=== PATIENT | female | born 2000 | race Hispanic/Latino ===

== ENCOUNTER 2022-10-13 16:42 | Emergency (ER) | payer OTHER ==
--- OUTSIDE RECORDS SUMMARY | 2022-10-13 16:48 | XMS REPORT | Continuity of Care Document ---
:2000 Author Organization [facility] t Address [address] [facility] [address] [place] [address] Care Team Providers Name Role Phone Unavailable Unavailable Unavailable Problems This patient has no known problems. Allergies, Adverse Reactions, Alerts This patient has no known allergies or adverse reactions. Medications This patient has no known medications. Procedures This patient has no known procedures. Results Test Description Test Time Test Comments Results Result Comments Source CBC W/AUTO DIFF WITH PLATELETS 2021-10-01 06:41:27 Test Item Value Reference Range Interpretation Comme nts WBC (test code = 1001) 7.1 K/UL 3.5-11.0 RBC (test code = 1002) 4.82 M/UL 3.80-5.40 HEMOGLOBIN (test code = 1003) 13.9 G/DL 11.5-15.5 HEMATOCRIT (test code = 1004) 41.7 % 34.0-45.0 MCV (test code = 1005) 86.5 fL 80.0-99.0 MCH (test code = 1006) 28.8 PG 25.0-33.0 MCHC (test code = 1007) 33.3 G/DL 31.0-36.0 RDW (test code = 1038) 12.7 % 11.5-15.0 NEUTROPHILS (test code = 56.9 % 1008) LYMPHOCYTES (test code = 34.6 % 1010) MONOCYTES (test code = 1011) 6.8 % EOSINOPHILS (test code = 1.1 % 1012) BASOPHILS (test code = 1013) 0.3 % IMMATURE GRANULOCYTES (test 0.3 % code = 1036) NUCLEATED RBCS (test code = 0.0 /100 WBC'S See_Comment [Automated message] The [employer] system which ge nerated this result transmit hilda reference range : 0.0. The reference range was not used to interpr et this result as miguel a l/abnormal. PLATELET COUNT (test code = 173 K/UL [phone]) ABSOLUTE NEUTROPHILS (test 4.04 K/UL 1.50-7.50 code = 1066) ABSOLUTE LYMPHOCYTES (test 2.46 K/UL 1.00-4.00 code = 1067) ABSOLUTE MONOCYTES (test code 0.48 K/UL 0.20-1.00 = 1068) ABSOLUTE EOSINOPHILS (test 0.08 K/UL 0.00-0.50 code = 1040) ABSOLUTE BASOPHILS (test code 0.02 K/UL 0.00-0.20 = 1069) ABS IMMATURE GRANULOCYTES 0.02 K/UL 0.00-0.10 (test code = 1020) ABS NUCLEATED RBCS (test code 0.00 K/UL 0.00-0.11 = 67574) HCG, [id number] 06:05:57 Test Item Value Reference Range Interpretation Comments HCG, QUANTITATIVE (test <5 MIU/ML SEE BELOW EXPECTED code = 2506) VALUES FOR HCG GST.AGE UNITS RANGE GST. AGE UNITS RANGE3 WEEKS PR U/ML 6-71 10 WEEKS M IU/ML 46,509-186,9774 WEEKS MIU/ML 10 -750 12 WEEKS MIU/ML 27,832-210,6125 WEEKS MIU/ML 217-7,138 14 WE EKS MIU/ML 13,950-62,5306 WEEKS MIU/ML 158-31,7 95 15 WEEKS MIU/ML 12,039-70,9717 WEEKS MIU/ML 3,697-16 3,563 16 WEEKS MIU/ML 9,040-56,4518 W EEKS MIU/ML 32,065-149,571 17 WEEKS MIU/ML 8,175-55,8689 W EEKS MIU/ML 63,803-151,410 18 WEEKS MIU/ML 8,099-58,176MAL ES and NON-PREGNAN T FEMALES . . . . . . . . MIU/ML [id number] ISABELLA FEMALES . . . . . . . . . . . . MIU /ML <=7 TSH, THIRD [id number] 06:05:57 Test Item Value Reference Range Interpretation Comments TSH, THIRD GENERATION (test code 1.970 UIU/ML 0.400-4.100 = 282) COMPREHENSIVE METABOLIC [id number] 05:04:59 Test Item Value Reference Range Interpretation Comments GLUCOSE (test code = 86 MG/DL 70-99 2216) BUN (test code = 15 MG/DL 6-20 2207) CREATININE (test 0.68 MG/DL 0.50-1.10 code = 221) eGFR (2020 CKD-EPI) 129 >60 (test code = 26008) ML/MIN/1.73 CALC BUN/CREAT (test 22 RATIO 6-28 code = 2235) SODIUM (test code = 142 MEQ/L 771-425 4405) POTASSIUM (test code 4.2 MEQ/L 3.5-5.4 = 2227) CHLORIDE (test code 106 MEQ/L 95-107 = 2214) CARBON DIOXIDE (test 23 MEQ/L 19-31 code = 220) CALCIUM (test code = 9.7 MG/DL 8.5-10.5 2208) PROTEIN, TOTAL (test 7.1 G/DL 6.1-8.3 code = 222) ALBUMIN (test code = 4.9 G/DL 3.5-5.2 2200) CALC GLOBULIN (test 2.2 G/DL 2.1-3.7 code = 2240) CALC A/G RATIO (test 2.2 RATIO 1.0-2.6 code = 2234) BILIRUBIN, TOTAL 0.4 MG/DL See_Comment [Automated message] (test code = 2207) [employer] which generated this result transmitted ref erence range: <=1.2. T he reference range was not used to int erpret this result as normal/abnormal . ALKALINE PHOSPHATASE 79 U/L 41-120 (test code = 2204) AST (test code = 19 U/L 9-40 2217) ALT (test code = 13 U/L 5-40 UNLESS OTH ERWISE 2218) INDICATED, ALL TESTING PERFORM [facility] [place] [address] [place] [address] [facility] DIRECTOR: BERENICE LESTER M.D. CLIA NUMBER [id number] CAP ACCREDITATION N O. [id number]
[2022-10-13 18:39] LABS: Specific Gravity 1.026 (1.005-1.030)
[2022-10-13 18:43] LABS: Specific Gravity 1.026 (1.005-1.030); Urine Bacteria None Seen /HPF (<20); Urine Bilirubin NEGATIVE (Negative); Urine Blood 3+ (Negative); Urine Clarity Turbid (Clear); Urine Color Light-Yellow (Yellow); Urine Glucose NEGATIVE (Negative); Urine Mucus 1+ /HPF (None Seen); Urine Protein 1+ (Negative); Urine Urobilinogen Normal (Normal); Urine pH 7.5 (5.0-7.0)
--- NOTE | 2022-10-13 19:22 | EDPHYS ---
Physician Documentation [facility] Name: Zelda Alfaro Age: 21 yrs Sex: Female : 2000 Arrival Date: 10/13/2022 Time: 16:42 Bed DIS1 Private MD: TERESA Physician Ze Baptiste HPI: 10/14 08:04 This 21 yrs old Female presents to ER via Ambulatory with complaints of sb4 Abdominal Cramping, Dizziness. 08:04 21-year-old otherwise healthy female presents with complaints of abdominal cramping and sb4 dizziness. She states that she started her menstrual cycle yesterday and today experienced a dizzy episode where she experienced some blurry vision and floaters. She states the bleeding has been a little bit heavier than normal and she has been experiencing more intense abdominal cramping than she normally does on her cycles. Denies any syncope, vomiting, fever, abnormal vaginal discharge, urinary symptoms. 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 - Social history:: Smoking status: Patient denies any tobacco usage or history of. ROS: 10/14 08:05 Constitutional: Negative for fever, chills, and weight loss. sb4 Abdomen/GI: Positive for nausea, diarrhea, abdominal cramps, Negative for vomiting, rectal pain, rectal bleeding. : : Positive for vaginal bleeding, menstrual abnormality, Negative for hematuria, pelvic pain, flank pain, burning with urination, difficulty urinating. Neuro: Positive for dizziness, Negative for headache, syncope. All other systems are negative. All other systems are negative. Exam: 08:05 Constitutional: This is a well developed, well nourished patient who is awake, alert, sb4 and in no acute distress. Head/Face: Normocephalic, atraumatic. Eyes: Extra-ocular motions intact. Periorbital areas with no swelling, redness, or edema. Cardiovascular: Regular rate and rhythm with a normal S1 and S2. Respiratory: Lungs have equal breath sounds bilaterally, clear to auscultation and percussion. No rales, rhonchi or wheezes noted. No increased work of breathing, no retractions or nasal flaring. Abdomen/GI: Soft, non-tender, no distension. Skin: Warm, dry with normal turgor. Normal color with no rashes, no lesions, and no evidence of cellulitis. MS/ Extremity: Pulses equal, no cyanosis. Neurovascular intact. Full, normal range of motion. Neuro: Awake and alert, GCS 15, oriented to person, place, time, and situation. Cranial nerves II-XII grossly intact. Motor strength 5/5 in all extremities. Sensory grossly intact. Cerebellar exam normal. Normal gait. Vital Signs: 10/13 16:49 BP 120 / 69; Pulse 69; Resp 16; Temp 97.8; Pulse Ox 100% ; Weight 49.9 kg; Height 5 ft. cm10 3 in. ; Pain 5/10; 16:49 Body Mass Index 19.49 (49.90 kg, 160.02 cm) cm10 16:49 Pain Scale: Adult cm10 MDM: 16:50 Patient medically screened. sb4 10/14 08:05 Differential diagnosis: STD, ectopic , dysmenorrhea, UTI. Data reviewed: vital sb4 signs, nurses notes, lab test result(s), urinalysis, and as a result, I will discharge patient. Counseling: I had a detailed discussion with the patient and/or guardian regarding: the historical points, exam findings, and any diagnostic results supporting the discharge/admit diagnosis, lab results, to return to the emergency department if symptoms worsen or persist or if there are any questions or concerns that arise at home. 10/13 17:42 Order name: UAM; Complete Time: 18:44 sb4 10/13 17:42 Order name: Test, Urine; Complete Time: 18:44 sb4 Administered Medications: No medications were administered Disposition Summary: 10/13/22 19:21 Discharge Ordered Location: Home sb4 Problem: new sb4 Symptoms: have improved sb4 Condition: Stable sb4 Diagnosis - Primary dysmenorrhea sb4 - Dizziness and giddiness sb4 Followup: sb4 - With: Emergency Department - When: As needed - Reason: Trouble breathing, Worsening of condition Discharge Instructions: - Discharge Summary Sheet sb4 - Dizziness sb4 - Dysmenorrhea sb4 Forms: - Medication Reconciliation Form sb4 - Thank You Letter sb4 - Antibiotic Education sb4 - Prescription Opioid Use sb4 - Patient Portal Instructions sb4 Prescriptions: - ketorolac 10 mg Oral tablet - take 1 tablet by ORAL route every 4 to 6 hours for 1 day as needed for pain; do sb4 not exceed 4 doses per 24 hrs; 10 tablet; Refills: 0, Product Selection Permitted Signatures: Dispatcher [employer] EDJerica Valenzuela PA-C PA-C sb4 Elizabeth Willis, RN RN cm10
--- NOTE | 2022-10-13 19:22 | ER ---
Nurse's Notes [facility] Name: Zelda Alfaro Age: 21 yrs Sex: Female : 2000 Arrival Date: 10/13/2022 Time: 16:42 Bed DIS1 Private MD: Diagnosis: Primary dysmenorrhea;Dizziness and giddiness Presentation: 10/13 16:49 Chief complaint: Patient states: abdominal cramping and dizziness onset today. Pt cm10 states, "I started my period this morning but I have never had cramps like this before". Pt reports 4 episodes of diarrhea today. Coronavirus screen: Vaccine status: Patient reports receiving the 2nd dose of the covid vaccine. Ebola Screen: No symptoms or risks identified at this time. Initial Sepsis Screen: Does the patient meet any 2 criteria? No. Patient's initial sepsis screen is negative. Does the patient have a suspected source of infection? No. Patient's initial sepsis screen is negative. Risk Assessment: Do you want to hurt yourself or someone else? Patient reports no desire to harm self or others. Onset of symptoms was October 13, 2022. 16:49 Method Of Arrival: Ambulatory cm10 16:49 Acuity: JUVENAL 3 cm10 Triage Assessment: 16:51 General: Appears in no apparent distress. comfortable, Behavior is calm, cooperative. cm10 Pain: Complains of pain in right lower quadrant and left lower quadrant Pain does not radiate. Pain currently is 5 out of 10 on a pain scale. Quality of pain is described as crampy, Pain began suddenly. Neuro: No deficits noted. Level of Consciousness is awake, alert, obeys commands, Oriented to person, place, time, situation. Respiratory: No deficits noted. Airway is patent Respiratory effort is even, unlabored, Respiratory pattern is regular, symmetrical. 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 - Social history:: Smoking status: Patient denies any tobacco usage or history of. Screenin:30 [facility] ED Fall Risk Assessment (Adult) History of falling in the last 3 months, vc1 including since admission No falls in past 3 months (0 pts) Confusion or Disorientation No (0 pts) Intoxicated or Sedated No (0 pts) Impaired Gait No (0 pts) Mobility Assist Device Used No (0 pt) Altered Elimination No (0 pt) Score/Fall Risk Level 0 - 2 = Low Risk Oriented to surroundings, Maintained a safe environment, Educated pt \\T\\ family on fall prevention, incl call for assistance when getting out of bed. Abuse screen: Denies threats or abuse. Nutritional screening: No deficits noted. Tuberculosis screening: No symptoms or risk factors identified. Vital Signs: 16:49 BP 120 / 69; Pulse 69; Resp 16; Temp 97.8; Pulse Ox 100% ; Weight 49.9 kg; Height 5 ft. cm10 3 in. ; Pain 5/10; 16:49 Body Mass Index 19.49 (49.90 kg, 160.02 cm) cm10 16:49 Pain Scale: Adult cm10 ED Course: 16:43 Patient arrived in ED. rg4 16:50 Jerica Fiore PA-C is PHCP. sb4 16:50 Ze Baptiste MD is Attending Physician. sb4 16:51 Triage completed. cm10 16:51 Arm band placed on Patient placed in an exam room, on a stretcher. cm10 18:26 Test, Urine Sent. cm10 18:26 UAM Sent. cm10 19:30 No provider procedures requiring assistance completed. Patient did not have IV access vc1 during this emergency room visit. Administered Medications: No medications were administered Medication: 19:30 VIS not applicable for this client. vc1 Outcome: 19:21 Discharge ordered by . sb4 19:30 Discharged to home ambulatory, with significant other. vc1 19:30 Condition: good 19:30 Discharge instructions given to patient, Instructed on discharge instructions, follow up and referral plans. medication usage, Demonstrated understanding of instructions, follow-up care, medications, Prescriptions given X 1. 19:30 Patient left the ED. vc1 Signatures: Doris You rg4 Mary Barnett RN RN vc1 Jerica Fiore PA-C PA-C sb4 Elizabeth Willis RN RN cm10
[2022-10-13 19:41] VITALS: BP 120/69; TEMP 97.8; O2SAT 100
== END 2022-10-13 19:30 | disposition home or self-care (01) ==
LOC: ER 16:42
DX: N94.4 Primary dysmenorrhea (principal)
CPT/HCPCS: 81001; 81025; 99283